=== PATIENT | male | born 1965 | race Caucasian/White ===

== ENCOUNTER 2018-03-25 14:03 | Emergency (ER) | payer OTHER ==
[~2018-03-25] VITALS: Ht 172.7 cm; Wt 90.7 kg
[~2018-03-25 14:03] MED LIST: FLUOXETINE HCL20 MG PO; HYZAAR 50-12.5 T1 EA PO
== END 2018-03-25 14:35 | disposition home or self-care (01) ==
LOC: ED 14:03
DX: K73.9 Chronic hepatitis, unspecified (principal); R18.8 Other ascites; I10 Essential (primary) hypertension; F32.9 Major depressive disorder, single episode, unspecified; F17.200 Nicotine dependence, unspecified, uncomplicated; Z79.899 Other long term (current) drug therapy
CPT/HCPCS: 99283

== ENCOUNTER 2019-01-23 08:45 | Day surgery (SDC) | payer OTHER ==
[~2019-01-23] VITALS: Ht 172.7 cm; Wt 72.6 kg
[2019-01-23] MEDS ORDERED: EPCLUSA 400 MG1 EACH PO (09:06)
[2019-01-23] MEDS ORDERED: HYDROCHLOROTHIA25 MG PO (09:07)
--- NOTE | 2019-01-23 11:56 | NUR ---
01/23/19 Nick6 Teresa Rod 1148 PT TO PACU SLEEPY BUT AROUSABLE JUSTINE PAIN OR NAUSEA O2 PLACED VIA MASK AT 7L.
[2019-01-23] MEDS ORDERED: IBUPROFEN600 MG PO (12:17)
[2019-01-23] MEDS ORDERED: OXYCODON-ACETA1 EAC2 PO (12:18)
--- NOTE | 2019-01-23 12:43 | NUR ---
PT ARRIVES TO DS RM 2 FROM RECOVERY AWAKE AND ALERT. PT RESP EVEN AND UNLABORED, SATS ABOVE 94% ON RA. PT DENIES ANY NAUSEA AND RATES PAIN 3/10 AND STATES IT IS TOLERABLE. PT PROVIDED ICED WATER ON ARRIVAL, TOLERATES SMALL SIPS. PT PROVIDED PUDDING AND CRACKERS. PT SPOUSE AT BEDSIDE. CALL LIGHT WITHIN REACH.
--- NOTE | 2019-01-23 13:35 | NUR ---
PT CONT TO REST IN BED WITH MINIMAL PAIN, 3/10. PT HAS URGE TO VOID. PT SITS UP AT SIDE OF BED, DENIES ANY NAUSEA OR DIZZINESS. PT AMBULTES TO BATHROOM WITH RN ASSIST, STEADY GAIT. PT ABLE TO VOID 400 MLS CONCENTRATED URINE WITH NO PROBLEM. PT BACK IN RM 2, GETTING DRESSED.
--- NOTE | 2019-01-23 14:01 | NUR ---
1345: DC INSTRUCTIONS GIVEN IN PRESENCE OF PT AND SPOUSE. ALL QUESTIONS ADDRESSED. PT CONFIRMS UNDERSTANDING OF DC INSTRUCTIONS. PT DC'S FROM DS RM 2 VIA WC TO PERSONAL VEHICLE AT MAIN ENTRANCE OF HOSPITAL HOME WITH SPOUSE.
--- NOTE | 2019-01-24 09:42 | OR ---
[facility] [address] [place], [place] [address] Signed DATE OF OPERATION: 01/23/2019 SURGEON: Rashaad Valerio MD DATE OF PROCEDURE: 01/23/2019 PREOPERATIVE DIAGNOSES: 1. Symptomatic umbilical hernia (pain). 2. 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 POSTOPERATIVE DIAGNOSIS: 1. Symptomatic umbilical hernia (pain). 2. 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 PROCEDURES PERFORMED: 1. Repair of umbilical hernia. 2. Implantation of Prolene mesh, underlay technique, properitoneal space. ANESTHESIA: General endotracheal, Addie Potter CRNA. INDICATION: This 53-year-old white man is a patient of Liberty Kamara. He was referred to me in April of 2018, where he was noted to have an umbilical hernia, which was painful and quite symptomatic. At that time, he was drinking alcohol perpetually, was noted to have hepatitis C and significant ascites. He has turned his situation around quite markedly, having undergone hepatitis C therapy as well as abstinence completely of alcohol over time. His ascites has resolved by using Lasix, spironolactone and more healthy behaviors. The hernia continues to be quite painful to him. The defect is at the umbilicus consistent with umbilical hernia. He is admitted at this time to undergo repair of the hernia. He understands the risks of bleeding, infection, recurrence, and other unforeseen complications, particularly given his prior history. Understanding this, he wished to proceed. FINDINGS: A distinct fascial defect with a size of two fingers about 3 cm in total was noted. There was no sign of incarcerated viscus. The hernia sac was quite thick and rubbery. In Electronically Signed By: RASHAAD VALERIO MD 01/24/19 0942 PATIENT NAME: STEWART JOHNSON OPERATIVE REPORT DATE OF : 61 REPORT #: [id number] PHYSICIAN: RASHAAD VALERIO MD PCP: LIBERTY KAMARA PA-C REPORT IS CONFIDENTIAL AND NOT TO BE RELEASED WITHOUT AUTHORIZATION [facility] [address] [place], [place] [address] Signed the properitoneal space, there were associated somewhat enlarged blood vessels consistent with portal hypertension, though there was no untoward bleeding or anything of that sort. The redundant portion of the hernia sac was excised and the defect closed in the hernia sac. He did not have obvious ascites in the abdominal cavity. A margin of approximately 3 cm circumferentially around the hernia defect itself allowed for placement of mesh in the properitoneal space. The fascia was able to be reapproximated as well. A drain was not required. DESCRIPTION OF PROCEDURE: The patient was brought to the operating room, given a general endotracheal anesthetic. Preoperative antibiotic Ancef was given. Sequential compression device stockings used and heparin subcutaneously administered. The abdomen was prepared with chlorhexidine solution and draped sterilely. Interrogation of the umbilical area digitally showed a distinct fascial defect at the umbilicus at least two fingerbreadths in size. There was no other sign of hernia. An incision was made around the umbilical area and dissection carried through the dermis with electrocautery and sharp dissection and blunt dissection used to separate the hernia sac, which was densely adherent under the dermis of the umbilical area. The hernia sac was opened and internal inspection showed no sign of ascites or carcinomatosis. With meticulous care, the hernia sac was freed from the overlying dermis and surrounding subcutaneous tissue and then the fascial layer was from the hernia sac with special care to maintain dissection in the properitoneal space. Enlarged veins consistent with portal hypertension were encountered in the properitoneal space with due care. There was no problem with that. Once the properitoneal space was approximately 3 cm circumferentially around the fascial defect, the redundant hernia sac was amputated and passed for pathology. The defect in the hernia sac was then secured with running locking 2-0 Vicryl suture. A segment of Prolene mesh cut in a circular configuration was used securing the mesh in the properitoneal space with interrupted 0 Prolene suture with Prolene pledgets. Photographs were taken. The midline fascia was reapproximated and interrupted horizontal Prolene suture with Prolene pledgets was used to secure the midline fascia over the mesh. A 20 mL of 0.25% Marcaine with epinephrine was injected locally. Amna's layers were reapproximated with interrupted 2-0 Vicryl and the skin closed with running subcuticular 3-0 Vicryl. Steri-Strips were applied as was a Mepilex silver sponge dressing and an OpSite. The patient tolerated the procedure well. BLOOD LOSS: Minimal. COMPLICATIONS: Electronically Signed By: RASHAAD VALERIO MD 01/24/19 0942 PATIENT NAME: STEWART JOHNSON OPERATIVE REPORT DATE OF : 61 REPORT #: [id number] PHYSICIAN: RASHAAD VALERIO MD PCP: LIBERTY KAMARA PA-C REPORT IS CONFIDENTIAL AND NOT TO BE RELEASED WITHOUT AUTHORIZATION [address] [address] Signed None. MD DION Fenton/MODL /[id number] cc: Liberty Kamara PA-C Copies: LIBERTY KAMARA PA-C ~ Electronically Signed By: RASHAAD VALERIO MD 01/24/19 0942 PATIENT NAME: STEWART JOHNSON ROD OPERATIVE REPORT DATE OF : 61 REPORT #: [id number] PHYSICIAN: RASHAAD VALERIO MD PCP: LIBERTY KAMARA PA-C REPORT IS CONFIDENTIAL AND NOT TO BE RELEASED WITHOUT AUTHORIZATION
== END 2019-01-23 13:55 | disposition home or self-care (01) ==
LOC: DS 08:45
PROVIDERS: Surgery
PROC: 0WUF0JZ Supplement Abdominal Wall with Synthetic Substitute, Open Approach (ICD-10-PCS; principal; 2019-01-23 10:45)
DX: K42.9 Umbilical hernia without obstruction or gangrene (principal); I10 Essential (primary) hypertension; A69.20 Lyme disease, unspecified; B19.20 Unspecified viral hepatitis C without hepatic coma; F10.20 Alcohol dependence, uncomplicated; K74.60 Unspecified cirrhosis of liver; Z79.899 Other long term (current) drug therapy; Z87.891 Personal history of nicotine dependence
CPT/HCPCS: 00750; C1781; J0330; J0690; J1100; J1644; J2250; J2405; J2704; J3010; J7120

== ENCOUNTER 2020-09-04 12:15 | Emergency (ER) | payer OTHER, BC ==
[~2020-09-04] VITALS: Ht 172.7 cm; Wt 85.4 kg
[~2020-09-04 12:15] MED LIST changes: +EPCLUSA 400 MG1 EACH PO; +HYDROCHLOROTHIA25 MG PO; +IBUPROFEN600 MG PO; +OXYCODON-ACETA1 EAC2 PO
[2020-09-04] MEDS ORDERED: HUMIRA PEN40 MG/0.4 SUB-Q (12:46)
== END 2020-09-04 14:15 | disposition home or self-care (01) ==
LOC: ED 12:15
DX: S20.212A Contusion of left front wall of thorax, initial encounter (principal); I10 Essential (primary) hypertension; F32.9 Major depressive disorder, single episode, unspecified; Z87.891 Personal history of nicotine dependence; Z79.899 Other long term (current) drug therapy; W22.8XXA Striking against or struck by other objects, initial encounter
CPT/HCPCS: 71046; 99284-25